=== PATIENT | female | born 1955 | race Caucasian/White ===

== ENCOUNTER 2021-12-21 10:31 | Emergency (ER) | payer MEDICARE, OTHER, SELFPAY ==
[2021-12-21 10:41] VITALS: BP 150/92; PULSE 74; RESP 16; TEMP 36.9; O2SAT 98
--- NOTE | 2021-12-21 11:07 | ED.GENADUL_ITS ---
Discharge Plan Disposition Patient Disposition: HOME Condition: Good Discharge Details Clinical Impression: Contact with and (suspected) exposure to covid-19 Primary Care Provider: Unknown,Unknown ED Provider: Praveen Heard Home Meds and New Rx's Prescriptions: No Action estradiol 2 mg Tablet 2 mg PO DAILY progesterone micronized 100 mg Capsule 100 mg PO DAILY levothyroxine 75 mcg Capsule 75 mcg PO DAILY Discharge Instructions Instructions: COVID-19: Slow the Coronavirus Spread (ED) Additional Instructions: Continue to monitor for any COVID-like symptoms and take a home antigen test if you develop symptoms. If you are positive and would like to consider possible Paxlovid if your symptoms are mild it is recommended to go to an urgent care for the antiviral prescription. If not available you may return to the emergency department. Referrals: Primary Care Provider [Outside] (As needed for reassessment) Medical Decision Making Patient presenting to the emergency department due to significant other testing positive for COVID this morning. Patient states that she did not perform any home testing given that they were coming here to have significant other evaluated anyways. Physical exam is unremarkable, stable vital signs. Discussed with patient send out PCR testing versus continuing to monitor symptoms and perform home test if she becomes symptomatic or after 3 days from exposure. After discussion of send out results taking 48 hours she stated she would prefer to use home testing and return as needed or go to urgent care. After discussion of diagnosis and plan of care patient has no further needs, questions, or concerns and states clear understanding to return to the emergency department for any worsening symptoms. This documentation was generated using [employer] dictation system, please disregard any oddities of phrase or misspellings. HPI General Mode of arrival: ambulatory . Date/Time Provider Initiated Documentation: 12/21/21 10:43 . Limitations to Documentation: no limitations . Information obtained by: patient . History of Present Illness 66 year old F presents to the emergency department with the chief complaint of COVID exposure, Patient notes no other symptoms.. Patient did receive the following treatments prior to arrival, none Related Data Home Medications Medication Instructions Recorded Confirmed estradiol 2 mg tablet 2 mg PO DAILY 12/21/21 12/21/21 levothyroxine 75 mcg capsule 75 mcg PO DAILY 12/21/21 12/21/21 progesterone micronized 100 mg 100 mg PO DAILY 12/21/21 12/21/21 capsule Allergies Allergy/AdvReac Type Severity Reaction Status Date / Time COVID-19 vaccine, mRNA, Allergy Intermediate Hives Unverified 12/21/21 10:43 [id number], [From Moderna COVID-19 Booster (EUA)] General Stated Complaint: [facility] EMILY: 5 Review of Systems Narrative: 6 systems reviewed and unremarkable except what is marked below. ENT Ears, Nose, Mouth, and Throat: Reports sore throat (Subjective and retrospective) PFSH All Active Problems (Updated 12/21/21 @ 11:11 by Praveen Heard NP) Contact with and (suspected) exposure to covid-19 (Acute) Social History Smoking risk assessment performed?: No Exam Const General: cooperative, comfortable and no acute distress Orientation: alert and awake HENWI Head: normal to inspection, normocephalic and atraumatic Ears: hearing grossly normal bilaterally and TM's normal bilaterally General nose exam: external nose normal Face and sinus: no erythema Mouth: oral mucosae normal, no drooling, no muffled voice and no trismus Throat: posterior oropharynx normal Neck Neck: normal visual inspection, full ROM, no meningeal signs, trachea midline and supple Resp Effort & Inspection: normal respiratory effort and able to speak in complete sentences Auscultation: clear to auscultation bilaterally Cardio Rate: regular rate Rhythm: regular rhythm Heart Sounds: S1 normal, S2 normal, normal S1 and S2, no click, no gallops, no murmurs and no rubs Skin General skin exam: no rashes or lesions noted and dry skin (warm) Neuro General: patient alert, patient awake, patient oriented x3, gait normal and moves all extremities Cognition: normal cognition Speech: speech normal Course Vital Signs Vital signs: Vital Signs Temperature 36.9 C 12/21/21 10:41 Pulse 74 12/21/21 10:41 Respiratory Rate 16 12/21/21 10:41 Blood Pressure 150/92 H 12/21/21 10:41 Pulse Oximetry 98 12/21/21 10:41 Temperature 36.9 C 12/21/21 10:41 Temperature Source Temporal Artery Scan 12/21/21 10:41 Pulse 74 12/21/21 10:41 Respiratory Rate 16 12/21/21 10:41 Blood Pressure 150/92 H 12/21/21 10:41 Blood Pressure Position Supine 12/21/21 10:41 Pulse Oximetry 98 12/21/21 10:41 Oxygen Delivery Method Room Air 12/21/21 10:41 Oxygen Flow Rate 0 12/21/21 10:41 Pain Level 0 12/21/21 10:41
[2021-12-21 11:26] VITALS: RESP 18
== END 2021-12-21 11:19 | disposition home or self-care (01) ==
PROVIDERS: Emergency Provider Nurse Practitioner Family
DX: R07.0 Pain in throat (principal); Z20.822 Contact with and (suspected) exposure to COVID-19
CPT/HCPCS: 99281; 99282